=== PATIENT | male | born 1990 | race Caucasian/White ===

== ENCOUNTER 2018-05-25 21:10 | Emergency (ER) | payer SELFPAY ==
[~2018-05-25] VITALS: Ht 175.2 cm; Wt 59.0 kg
--- NOTE | ~2018-05-25 | EKG ---
[place], [place] ELECTROCARDIOGRAM REPORT NAME: JENNIFER ANGLIN UNIT #: [id number] ROOM: DOCTOR: EPIPHANY DRAFT REPORT BIRTHDATE: [birth year] [facility] Test Date: 2018-05-25 Test Time: 21:22:32 Pat Name: JENNIFER ANGLIN Department: ER Room: 13 Gender: M [employer] Mechanic: Denisse Gomez : 1990 Requested By: CAROLYN GRAY Order Number: [id number] Reading MD: Sawyer Larry MD Measurements Intervals [place] Rate: 108 P: 68 [place]: 153 QRS: 125 QRSD: 102 T: 48 QT: 318 QTc: 426 Interpretive Statements Sinus tachycardia Probable left atrial enlargement Incomplete RBBB Right axis deviation Probable right ventricular hypertrophy Anterolateral Q wave, probably normal for age Electronically Signed On 05-26-2018 12:16:16 PST by Sawyer Larry MD CM:EKGRPT:ELECTROCARDIOGRAM REPORT 21 1216 CAROLYN GRAY MD EPIPHANY DRAFT REPORT CAROLYN GRAY MD
[~2018-05-25 21:10] MED LIST: HYDROCODONE BIT1 T11 PO; KEFLEX500 MG PO; MOTRIN800 MG PO; TRAMADOL HCL50 MG PO; XANAX0.5 MG PO; ZITHROMAX Z PA250 MG PO; ZOFRAN ODT4 MG SL
[2018-05-25 21:34] LABS: BASO # 0.1 10*3/uL (0.0-0.1); BASO % 0.7 % (0.0-1.0); EOS # 0.4 10*3/uL (0.0-0.4); EOS % 3.9 % (1.0-4.0); HEMATOCRIT 46.9 % (42.0-52.0); HEMOGLOBIN 16.2 g/dl (14.0-18.0); LYMPH # 2.5 10*3/uL (1.3-4.4); LYMPH % 25.6 % (27.0-41.0); MEAN CELL VOLUME 90.4 fl (80.0-94.0); MEAN CORPUSCULAR HGB 31.2 pg (27.0-31.0); MEAN CORPUSCULAR HGB CONC 34.5 g/dl (33.0-37.0); MEAN PLATELET VOLUME 10.4 fl (9.6-12.3); MONO # 0.8 10*3/uL (0.1-1.0); MONO % 7.8 % (3.0-9.0); NEUT % 61.7 % (47.0-73.0); PLATELET COUNT AUTOMATED 203 10*3/uL (130-400); RED BLOOD COUNT 5.19 10*6/uL (4.50-5.90); WHITE BLOOD COUNT 9.7 10*3/uL (4.8-10.8)
[2018-05-25 21:46] LABS: ACT PARTIAL THROMBO TIME 24.8 SECONDS (20.8-31.5); INTERNATIONAL NORM RATIO 1.1 (2.0-3.5)
[2018-05-25 21:51] LABS: ALBUMIN 3.7 gm/dl (3.1-4.5); BUN 12 mg/dl (7-24); CHLORIDE 106 mmol/L (98-107); CREATININE 1.22 mg/dL (0.70-1.30); POTASSIUM 3.5 mmol/L (3.5-5.1); SGOT/AST 13 IU/L (3-35); SGPT/ALT 20 U/L (12-78); SODIUM 143 mmol/L (136-145); TOTAL PROTEIN 6.8 gm/dL (6.4-8.2)
[2018-05-25 21:54] LABS: ALKALINE PHOSPHATASE 87 U/L (45-117)
[2018-05-25 21:57] LABS: BILIRUBIN NEGATIVE (NEGATIVE); BLOOD NEGATIVE (NEGATIVE); CLARITY CLEAR (CLEAR); COLOR YELLOW (YELLOW); GLUCOSE NEGATIVE (NEGATIVE); KETONE NEGATIVE (NEGATIVE); LEUKO ESTERASE NEGATIVE (NEGATIVE); NITRITE NEGATIVE (NEGATIVE); PH 6.5 (5.0-9.0); UROBILINOGEN 0.2 E.U./dl (0.2-1.0)
[2018-05-25 21:58] LABS: TROPONIN I < 0.015 ng/ml (<0.045)
[2018-05-25 22:07] LABS: URINE AMPHETAMINES < 1000 (1000ng/ml); URINE BARBITURATES < 200 (200ng/ml); URINE BENZODIAZEPINES < 200 (200ng/ml); URINE CANNABINOIDS (THC) < 50 (50ng/ml); URINE COCAINE < 300 (300ng/ml); URINE METHADONE < 300 (300ng/ml); URINE OPIATES < 300 (300ng/ml); URINE PHENCYCLIDINE < 25 (25ng/ml)
[2018-05-25 22:19] LABS: RBC 0-2 rbc/hpf (0-2)
[2018-05-25] MEDS ORDERED: VIBRAMYCIN100 MG PO (23:14)
== END 2018-05-25 23:38 | disposition home or self-care (01) ==
LOC: ED 21:10
PROVIDERS: Emergency Medicine Emergency Medical Services; Physician Assistant
DX: R00.2 Palpitations (principal); T39.015A Adverse effect of aspirin, initial encounter; J01.90 Acute sinusitis, unspecified; Y92.89 Other specified places as the place of occurrence of the external cause; Z88.1 Allergy status to other antibiotic agents

== ENCOUNTER 2018-07-10 03:34 | Emergency (ER) | payer SELFPAY ==
[~2018-07-10] VITALS: Ht 172.7 cm; Wt 63.5 kg
[~2018-07-10 03:34] MED LIST changes: +VIBRAMYCIN100 MG PO
[2018-07-10 03:53] LABS: BILIRUBIN NEGATIVE (NEGATIVE); BLOOD NEGATIVE (NEGATIVE); CLARITY CLEAR (CLEAR); COLOR YELLOW (YELLOW); GLUCOSE NEGATIVE (NEGATIVE); KETONE NEGATIVE (NEGATIVE); LEUKO ESTERASE NEGATIVE (NEGATIVE); NITRITE NEGATIVE (NEGATIVE); PH 5.5 (5.0-9.0); SPECIFIC GRAVITY <= 1.005 (1.005-1.030); UROBILINOGEN 0.2 E.U./dl (0.2-1.0)
[2018-07-10 03:59] LABS: BACTERIA TRACE
[2018-07-10 04:03] LABS: URINE AMPHETAMINES < 1000 (1000ng/ml); URINE BARBITURATES < 200 (200ng/ml); URINE BENZODIAZEPINES < 200 (200ng/ml); URINE CANNABINOIDS (THC) < 50 (50ng/ml); URINE COCAINE < 300 (300ng/ml); URINE METHADONE < 300 (300ng/ml); URINE OPIATES < 300 (300ng/ml)
[2018-07-10 04:08] LABS: URINE PHENCYCLIDINE < 25 (25ng/ml)
== END 2018-07-10 04:38 | disposition left against medical advice (07) ==
LOC: ED 03:34
PROVIDERS: Emergency Medicine
DX: F10.129 Alcohol abuse with intoxication, unspecified (principal); Z88.1 Allergy status to other antibiotic agents; Z79.2 Long term (current) use of antibiotics; Z79.899 Other long term (current) drug therapy

== ENCOUNTER → 2020-05-20 | Outpatient (CLI) | payer SELFPAY | END | disposition home or self-care (01) | LOC: COVID19 14:05 | PROVIDERS: ATTEND Nurse Practitioner Primary Care | DX: Z20.828 Contact with and (suspected) exposure to other viral communicable diseases (principal) ==

== ENCOUNTER 2021-02-23 06:34 | Emergency (ER) | payer OTHER ==
[~2021-02-23] VITALS: Ht 175.2 cm; Wt 59.0 kg
[2021-02-23 07:02] LABS: BASO # 0.1 10*3/uL (0.0-0.1); BASO % 0.5 % (0.0-1.0); EOS # 0.6 10*3/uL (0.0-0.4); HEMATOCRIT 46.2 % (42.0-52.0); LYMPH # 1.5 10*3/uL (1.3-4.4); LYMPH % 13.6 % (27.0-41.0); MEAN CELL VOLUME 90.4 fl (80.0-94.0); MEAN CORPUSCULAR HGB 30.7 pg (27.0-31.0); MEAN PLATELET VOLUME 10.9 fl (9.6-12.3); MONO # 0.9 10*3/uL (0.1-1.0); NEUT % 72.4 % (47.0-73.0); PLATELET COUNT AUTOMATED 170 10*3/uL (130-400); RED BLOOD COUNT 5.11 10*6/uL (4.50-5.90); RED CELL DISTRI WIDTH 13.2 % (0-14.5)
[2021-02-23 07:18] LABS: ALBUMIN 3.8 gm/dl (3.1-4.5); ALKALINE PHOSPHATASE 84 U/L (45-117); BUN 11 mg/dl (7-24); CHLORIDE 106 mmol/L (98-107); CREATININE 1.12 mg/dL (0.70-1.30); POTASSIUM 4.3 mmol/L (3.5-5.1); SGOT/AST 10 IU/L (3-35); SGPT/ALT 23 U/L (12-78); SODIUM 137 mmol/L (136-145); TOTAL PROTEIN 7.2 gm/dL (6.4-8.2)
== END 2021-02-23 09:56 | disposition home or self-care (01) ==
LOC: ED 06:34
PROVIDERS: Internal Medicine
DX: R05 Cough (principal); Z20.822 Contact with and (suspected) exposure to COVID-19; J02.9 Acute pharyngitis, unspecified; R09.81 Nasal congestion; Z88.1 Allergy status to other antibiotic agents

== ENCOUNTER 2022-04-17 18:24 | Emergency (ER) | payer OTHER ==
[~2022-04-17] VITALS: Wt 59.0 kg
[2022-04-17] MEDS ORDERED: CLINDAMYCIN HC300 MG PO (18:49)
[2022-04-17] MEDS ORDERED: ULTRAM50 MG PO (18:49)
== END 2022-04-17 19:04 | disposition home or self-care (01) ==
LOC: ED 18:24
DX: K08.89 Other specified disorders of teeth and supporting structures (principal); Z88.1 Allergy status to other antibiotic agents

== ENCOUNTER → 2022-10-05 | Day surgery (SDC) | payer OTHER ==
[2022-07-30 13:20] VITALS: BP 115/97
[~2022-10-05] VITALS: Ht 175 cm; Wt 61.0 kg
[~2022-10-05] MED LIST changes: +BUSPAR5 MG PO; +CLEOCIN HCL150 MG PO; +CLINDAMYCIN HC300 MG PO; +ESCITALOPRAM OX20 MG PO; +HYDROCODONE-AC1 EAC1 PO; +METRONIDAZOLE500 M1 PO; +OMNICEF300 MG PO; +ULTRAM50 MG PO
[2022-10-05 07:00] VITALS: BP 135/75
[2022-10-05 09:16] VITALS: BP 123/84
[2022-10-05 09:31] VITALS: BP 145/82
[2022-10-05 09:46] VITALS: BP 133/81
[2022-10-05 10:01] VITALS: BP 130/79
[2022-10-05 10:16] VITALS: BP 130/79
== END | disposition home or self-care (01) ==
LOC: SDC 07-30 13:15
PROVIDERS: ATTEND Dentist General Practice
DX: K02.9 Dental caries, unspecified (principal); F41.9 Anxiety disorder, unspecified; F32.A Depression, unspecified; F17.210 Nicotine dependence, cigarettes, uncomplicated; Z79.899 Other long term (current) drug therapy

== ENCOUNTER 2024-07-28 18:22 | Emergency (ER) | payer OTHER ==
[~2024-07-28] VITALS: Ht 175.2 cm; Wt 63.5 kg
[2024-07-28] MEDS ORDERED: AVPAK AZITHROM250 M1 PO (18:45)
[2024-07-28] MEDS ORDERED: Ketorolac Tromethamine 15 MG/ML VIAL IV ONE (18:45)
[2024-07-28] MEDS ORDERED: SODIUM CHLORIDE 0.9% 1,000 ML IV ONE (18:45)
[2024-07-28] MEDS ORDERED: MELOXICAM15 MG PO (18:45)
[2024-07-28 18:55] LABS: BASO # 0.1 10*3/uL (0.0-0.1); BASO % 0.7 % (0.0-1.0); EOS # 0.3 10*3/uL (0.0-0.4); EOS % 4.4 % (1.0-4.0); HEMATOCRIT 45.9 % (42.0-52.0); MEAN CELL VOLUME 90.9 fl (80.0-94.0); MEAN CORPUSCULAR HGB 29.9 pg (27.0-31.0); MEAN CORPUSCULAR HGB CONC 32.9 g/dl (33.0-37.0); MEAN PLATELET VOLUME 9.7 fl (9.6-12.3); MONO # 0.6 10*3/uL (0.1-1.0); MONO % 8.3 % (3.0-9.0); NEUT # 3.8 10*3/uL (2.3-7.9); NEUT % 53.6 % (47.0-73.0); PLATELET COUNT AUTOMATED 253 10*3/uL (130-400); RED BLOOD COUNT 5.05 10*6/uL (4.50-5.90); RED CELL DISTRI WIDTH 13.5 % (0-14.5)
[2024-07-28] MEDS ORDERED: LEVOFLOXACIN750 M2 PO (19:04)
[2024-07-28 19:09] LABS: BUN 9 mg/dl (9-23); CHLORIDE 104 mmol/L (98-107); POTASSIUM 3.9 mmol/L (3.4-5.1)
== END 2024-07-28 20:21 | disposition home or self-care (01) ==
LOC: ED 18:22
PROVIDERS: Emergency Medicine
DX: J18.9 Pneumonia, unspecified organism (principal); F17.210 Nicotine dependence, cigarettes, uncomplicated; Z88.1 Allergy status to other antibiotic agents; Z79.899 Other long term (current) drug therapy